=== PATIENT | female | born 1980 | race Caucasian/White ===

== ENCOUNTER 2019-04-20 12:27 | Emergency (ER) | payer BC ==
[~2019-04-20] VITALS: Ht 157.5 cm; Wt 71.0 kg
[2019-04-20 12:49] VITALS: Ht 157.5 cm; Wt 71.0 kg
[2019-04-20 13:47] VITALS: BP 144/93
== END 2019-04-20 15:11 | disposition left against medical advice (07) ==
LOC: ED 12:27
DX: Z53.21 Procedure and treatment not carried out due to patient leaving prior to being seen by health care provider (principal)